=== PATIENT | female | born 1945 ===

== ENCOUNTER → 2018-09-05 | Outpatient (CLI) | payer OTHER | LOC: FIMAGING 11:35 | PROVIDERS: ATTEND Orthopaedic Surgery | DX: Z01.818 Encounter for other preprocedural examination (principal); M17.11 Unilateral primary osteoarthritis, right knee ==

== ENCOUNTER 2018-09-07 05:53 | Inpatient (IN) | payer OTHER ==
[2018-09-07] MEDS ORDERED: *IRR*TRANEXAMIC ACID 3,000 MG/NS 50 ML IRR ONE (06:00)
[2018-09-07] MEDS ORDERED: ROPI/epINEPH/KETOROLAC IU ONE (06:00)
[2018-09-07] MEDS ORDERED: DEXAMETHASONE 4 MG/ML VIAL IVP ONE (06:12)
[2018-09-07] MEDS ORDERED: FAMOTIDINE 20 MG TAB PO ONE (06:12)
[2018-09-07] MEDS ORDERED: ceFAZolin 2 GM/DEXTROSE 100 ML IV ONE (06:12)
[2018-09-07] MEDS ORDERED: ACETAMINOPHEN 325 MG TAB PO ONE (06:12)
[2018-09-07] MEDS ORDERED: LIDOCAINE 1% 2 ML INJ ID PRN (06:16)
[2018-09-07] MEDS ORDERED: LR 1,000 ML IV ONE (06:16)
--- NOTE | 2018-09-07 06:21 | PDHPUP ---
History & Physical Update H&P update statement: This history and physical update is based on an assessment of the patient which was completed after admission or registration (within 24 hours), but prior to the surgery/procedure. H&P update: H&P reviewed & patient examined, no change in patient's condition since H&P completed
[2018-09-07] MEDS ORDERED: TRANEXAMIC ACID 3,000 MG/50 ML BAG IRR ONE (06:33)
--- NOTE | 2018-09-07 06:49 | PDANEPAE ---
ANE History of Present Illness 73 yo with right knee arthritis ANE Past Medical History - Cardiovascular History Hx Hypertension: No Hx Arrhythmias: No Hx Chest Pain: No Hx Coronary Artery / Peripheral Vascular Disease: No Hx CHF / Valvular Disease: No Hx Palpitations: No - Pulmonary History Hx COPD: No Hx Asthma/Reactive Airway Disease: No Hx Recent Upper Respiratory Infection: No Hx Oxygen in Use at Home: No Hx Sleep Apnea: No Sleep Apnea Screening Result - Last Documented: Negative Pulmonary History Comment: CHILDHOOD ASTHMA - NONE ADULT - Neurologic History Hx Cerebrovascular Accident: No Hx Seizures: No Hx Dementia: No Neurologic History Comment: MIGRAINES IN PAST - Endocrine History Hx Diabetes: No Endocrine History Comment: PARTIAL THYROIDECTOMY - LEVOTHYROXINE - Renal History Hx Renal Disorders: No - Liver History Hx Hepatic Disorders: No - Neurological & Psychiatric Hx Hx Neurological and Psychiatric Disorders: No - Cancer History Hx Cancer: No Cancer History Comment: THYROID CANCER - Congenital Disorder History Hx Congenital Disorders: No - GI History Hx Gastrointestinal Disorders: No - Other Health History Other Health History: NEG - Chronic Pain History Chronic Pain: Yes (ARTHRITIS - KNEES & BACK) - Surgical History Prior Surgeries: THYROIDECTOMY PARTIAL. APPENDECTOMY ANE Review of Systems Review of systems is: negative Review of Systems: - Exercise capacity METS (RN): 4 METS ANE Patient History - Allergies Allergies/Adverse Reactions: No Known Allergies Allergy (Unverified 08/31/18 17:02) - Home Medications Home medications: home medication list seen and reviewed Home Medications: Escitalopram Oxalate 10 mg PO DAILY 08/31/18 [Last Taken Unknown] Levothyroxine [Synthroid 150 mcg (*)] 150 mcg PO DAILY06 08/31/18 [Last Taken Unknown] - Anes Hx Anes Hx: no prior problems - Smoking Hx Smoking Status: Never smoked ANE Labs/Vital Signs - Vital Signs Height: 162.56 cm Weight: 92.533 kg ANE Physical Exam - Airway Neck exam: FROM Mallampati Score: Class 1 Mouth exam: normal dental/mouth exam - Pulmonary Pulmonary: no respiratory distress - Cardiovascular Cardiovascular: regular rate and rhythym - ASA Status ASA Status: II ANE Anesthesia Plan Anesthesia Plan: spinal
[2018-09-07] MEDS ORDERED: MIDAZOLAM 2 MG/2 ML VIAL IVP ONE (06:54)
[2018-09-07] MEDS ORDERED: MIDAZOLAM 2 MG/2 ML VIAL ONE (06:58)
[2018-09-07] MEDS ORDERED: fentaNYL 100 MCG/2 ML INJ ONE (07:05)
[2018-09-07] MEDS ORDERED: PROPOFOL/EMULSION 500 MG/50 ML BOTTLE IV ONE (07:05)
[2018-09-07] MEDS ORDERED: TEMAZEPAM 15 MG CAP PO PRN (08:43)
[2018-09-07] MEDS ORDERED: ONDANSETRON DISINTEGRATING 4 MG TAB PO PRN (08:43)
[2018-09-07] MEDS ORDERED: diphenhydrAMINE 25 MG CAP PO PRN (08:43)
[2018-09-07] MEDS ORDERED: MAGNESIUM HYDROXIDE 30 ML UDCUP PO PRN (08:43)
[2018-09-07] MEDS ORDERED: METOCLOPRAMIDE 10 MG/2 ML VIAL IVP PRN (08:43)
[2018-09-07] MEDS ORDERED: DIPHENOXYLATE/ATROPINE LOMOTIL 1 TAB PO PRN (08:43)
[2018-09-07] MEDS ORDERED: LACTULOSE 20 GM/30 ML UDCUP PO PRN (08:43)
[2018-09-07] MEDS ORDERED: PROMETHAZINE HCL 25 MG/ML INJ IVP PRN ×2 (08:43→08:55)
[2018-09-07] MEDS ORDERED: POLYETHYLENE GLYCOL 3350 17 GM PKT PO PRN (08:43)
[2018-09-07] MEDS ORDERED: PROMETHAZINE HCL 25 MG SUPPR PR PRN (08:43)
[2018-09-07] MEDS ORDERED: BISACODYL 10 MG SUPP PR PRN (08:43)
[2018-09-07] MEDS ORDERED: ONDANSETRON 4 MG/2 ML VIAL IVP PRN ×2 (08:43→08:55)
--- NOTE | 2018-09-07 08:43 | POSTOPPROG ---
Post Op Note Date of Operation: 09/07/18 Surgeon: Danay Plascencia Colleter: Lien Joseph PA-C and Meredith Plascencia PA-C Anesthesiologist: Warm Anesthesia: Spinal, Other (Specify) (adductor canal block) Pre-op Diagnosis: right knee OA Post-op Diagnosis: same Indication: right knee pain Procedure: R TKA robot assisted Findings: severe knee OA Inf/Abcess present in the surg proc area at time of surgery?: No EBL: 50-100
--- NOTE | 2018-09-07 08:54 | POSTANESTH ---
Post Anesthetic Evaluation Cardiovascular Status: Normal, Stable Respiratory Status: Normal, Stable Level of Consciousness/Mental Status: Can Participate in Eval Pain Control: Adequate, Prn Tx Ordered Nausea/Vomiting Control: Adequate, Prn Tx Ordered Complications Possibly Related to Anesthesia: None Noted
[2018-09-07] MEDS ORDERED: fentaNYL 100 MCG/2 ML INJ IVP PRN (08:55)
[2018-09-07] MEDS ORDERED: NALOXONE HCL 0.4 MG/ML INJ IVP PRN (08:55)
[2018-09-07] MEDS: SENNOSIDES/DOCUSATE SODIUM TAB PO SCH ×2 (09:00→20:05)
[2018-09-07] MEDS ORDERED: LR 1,000 ML IV SCH (09:00)
[2018-09-07] MEDS: oxyCODONE IR 5 MG TAB PO PRN ×2 (11:26→15:25)
[2018-09-07] MEDS: CYCLOBENZAPRINE 10 MG TAB PO PRN ×2 (11:26→22:22)
[2018-09-07] MEDS: ACETAMINOPHEN 325 MG TAB PO SCH ×2 (11:27→17:59)
[2018-09-07] MEDS: ceFAZolin 2 GM/DEXTROSE 100 ML IV SCH (15:57)
--- NOTE | 2018-09-07 16:55 | PDMN ---
Medical Necessity Medical necessity: Pt meets inpt criteria per MD order and [facility] S-700, Knee Arthroplasty, Total, A-2 days. 73 y/o w/severe R knee OA admitted for R TKA and post-op care. Comorbid conditions include adv age, overweight, and chronic pain (arthritis knees and back). Pre-authed for inpt stay.
[2018-09-07] MEDS: FAMOTIDINE 20 MG TAB PO SCH (20:06)
[2018-09-07] MEDS: ASPIRIN 81 MG CHEWABLE TAB PO SCH (20:06)
[2018-09-08] MEDS: ceFAZolin 2 GM/DEXTROSE 100 ML IV SCH (00:08)
[2018-09-08] MEDS: ACETAMINOPHEN 325 MG TAB PO SCH ×2 (00:08→06:43)
[2018-09-08] MEDS: oxyCODONE IR 5 MG TAB PO PRN ×2 (02:57→11:04)
[2018-09-08] MEDS ORDERED: LEVOTHYROXINE 150 MCG TAB PO SCH (06:00)
[2018-09-08] MEDS: CYCLOBENZAPRINE 10 MG TAB PO PRN (07:02)
[2018-09-08] MEDS: FAMOTIDINE 20 MG TAB PO SCH (07:02)
[2018-09-08] MEDS: SENNOSIDES/DOCUSATE SODIUM TAB PO SCH (07:02)
[2018-09-08] MEDS: ASPIRIN 81 MG CHEWABLE TAB PO SCH (07:02)
[2018-09-08 07:35] VITALS: BP 119/85
[2018-09-08] MEDS ORDERED: ESCITALOPRAM OXALATE 10 MG TAB PO SCH (09:00)
--- NOTE | 2018-09-08 11:25 | ASMTLACE ---
LACE Length of stay for Answers: 2 days current admission Acuity / Level of Answers: Yes Care: Did the patient have an inpatient admission? Comorbidities - select Answers: Opioid dependence all that apply / Chronic pain # of Emergency department Answers: 0 visits in the last 6 months Score: 9 Date Signed: 09/08/2018 11:25 AM Electronically Signed By:ERVIN Watson
--- NOTE | 2018-09-08 13:12 | SOAPPROG ---
SOAP Progress Note Assessment/Plan: Assessment: Patient is doing well POD 1 s/p R TKA Pain management: pain is well controlled on oral pain meds. VTE ppx: recommend aspirin 81 mg BID for 4 weeks, cont AN and SCDs Anemia: level is expected initially postop. Asymptomatic. Continue to monitor D/c planning: Patient has done better than anticipated and would like to be discharged to home today. Patient must be released from PT before discharge to home. Plan: 09/08/18 13:12 Subjective: patient is doing well today, denies SOB, chest pain and N/V Objective: Vital Signs Temp Pulse Resp BP Pulse Ox 36.6 C 59 L 19 119/85 H 93 09/08/18 07:35 09/08/18 07:35 09/08/18 07:35 09/08/18 07:35 09/08/18 07:35 Laboratory Results 09/08/18 05:08 09/07/18 09/08/18 09/09/18 05:59 05:59 05:59 Intake Total 2265 Output Total 2250 Balance 15 RLE: incision dressing is clean and dry, NVI, +pf/df ICD10 Worksheet Patient Problems: Problems Problem Status Onset Primary localized osteoarthritis of right knee Acute
--- NOTE | 2018-09-08 13:16 | GOP ---
[f rep st] OPERATIVE REPORT DATE OF OPERATION: 09/07/2018 SURGEON: Gregg Plascencia MD [employer]YROLL SECRETARY: 1. Meredith Plascencia PA-C. 2. Lien Joseph PA-C. ANESTHESIA: Spinal. PREOPERATIVE DIAGNOSIS: Right knee osteoarthritis. POSTOPERATIVE DIAGNOSIS: Right knee osteoarthritis. PROCEDURE PERFORMED: Right total knee arthroplasty with computer navigation, robotic assist. FINDINGS: ESTIMATED BLOOD LOSS: 30 cc. INDICATIONS: The patient is a 73-year-old female with severe and progressive pain and deformity of t he right knee unresponsive to conservative care. The risks and benefits of surgical intervention wer e explained in detail. DESCRIPTION OF PROCEDURE: The patient was brought to the operative room and placed on the table in t he supine position. Spinal anesthesia was induced without difficulty. A pneumatic tourniquet was ap plied about the right proximal thigh, and the leg was prepped and draped in a sterile fashion. The l eg grider was applied. After exsanguination by elevation, the tourniquet was inflated to 250 mmHg. Incision was made anterior medial from the tibial tuberosity to a point 2 cm proximal to the superior pole of the patella. Medial parapatellar arthrotomy was carried out from the superior pole of the p atella and posteriorly in line with the fibers of the Type II VMO. The medial collateral ligament was elevated and the infrapatellar fat pad was resected. The patella was everted and the articular surface was excised. A 32 mm patellar button was placed. Attention was turned first to the distal aspect of the femur. After exposure of the femur, 2 half pi ns were placed for fixation of the femoral array. In a similar fashion, 2 pins were placed anteromed ial on the tibia for fixation of the tibial array. External land marking and registration of the hip center was performed without difficulty. Internal femoral and tibial registration was carried out w ithout difficulty and the femoral and tibial checkpoints were placed and verified for accuracy. Attention was turned to the femur. The foot print for the size 4 femoral component was cut with the saw using the [employer] robotic system and verified for accuracy against the CT based plan. In a similar f ashion, the saw was used to cut the footprint for the size 4 tibial component using the CAIT system an d verified for accuracy against the CT based plan. The tibial articular surface was excised without d ifficulty, followed by the intercondylar box cut. The knee was extended and the remnants of the medial and lateral meniscus were excised. The posterior capsule was injected with ropivacaine, epinephrine and Toradol. A size 4 tibial tray was positioned . Trial reduction was then carried out. There was excellent range of motion, alignment, and stabilit y using the 4 x 11 mm polyethylene. All trials were then removed. The joint was thoroughly irrigated and carefully dried. The press-fit c omponents were implanted. The permanent 4 x 11 mm polyethylene was placed without difficulty. The tourniquet was deflated and all bleeders were coagulated. The wound was thoroughly irrigated and closed using interrupted sutures of 2-0 Vicryl for the joint capsule. The subcu was closed with 3-0 Vicryl and the skin with 4-0 Monocryl. Dermabond and Steri-Strips were applied followed by a lukasz sive dressing. The patient was then moved from the operating room to the recovery room in good condi tion, having tolerated the procedure well. PATHOLOGY: Severe tricompartmental osteoarthritis. /[id number]/MODL
--- NOTE | 2018-09-08 19:49 | GDS ---
[f rep st] DISCHARGE SUMMARY SUPERVISING PHYSICIAN: Gregg Plascencia MD ADMISSION DIAGNOSIS: Right knee osteoarthritis. DISCHARGE DIAGNOSIS: Right knee osteoarthritis. PROCEDURE: Right total knee arthroplasty, robot assisted. VTE PROPHYLAXIS: Recommend aspirin 81 mg twice daily for 4 days. BRIEF DESCRIPTION OF HOSPITAL STAY: Patient was admitted for an elective joint arthroplasty. The pa tient tolerated the procedure well and has passed physical therapy. The patient was given appropriat e antibiotic prophylaxis and venous thromboembolism prophylaxis. The patient's pain was well control led on oral pain medication, patient was holding down food, and had urinated. Decision was made to d ischarge the patient. The patient was given post-operative prescriptions pre-operatively. PLAN: Followup scheduled with Dr. Plascencia's office on September 29 at 10:45 a.m. /[id number]/MODL
--- NOTE | 2018-09-08 19:54 | GDS ---
[f rep st] DISCHARGE SUMMARY SUPERVISING PHYSICIAN: Gregg Plascencia MD BRIEF DESCRIPTION OF HOSPITAL STAY: Patient was admitted for an elective joint arthroplasty. The pa gonzalesnt tolerated the procedure well and has passed physical therapy. The patient was given appropriat e antibiotic prophylaxis and venous thromboembolism prophylaxis. The patient's pain was well control led on oral pain medication, patient was holding down food, and had urinated. Decision was made to d ischarge the patient. The patient was given post-operative prescriptions pre-operatively. PLAN: To follow up with Dr. Plascencia at [facility] in 2 to 3 weeks. /[id number]/MODL
== END 2018-09-08 11:22 | disposition home or self-care (01) | DRG 470 ==
LOC: F3N 05:53 → EDSTATUS 07:15 → F3N 08:15
PROVIDERS: ADMIT Orthopaedic Surgery; ATTEND Orthopaedic Surgery
DX: M17.11 Unilateral primary osteoarthritis, right knee (principal); E89.0 Postprocedural hypothyroidism; Z85.850 Personal history of malignant neoplasm of thyroid; Z23 Encounter for immunization
CPT/HCPCS: 97116-GP; 97161-GP; G0008; J0171; J0690; J1100; J1885; J2250; J2704; J2795; J3010